=== PATIENT | female | born 1930 | race Caucasian/White ===

== ENCOUNTER 2017-10-29 12:14 | Emergency (ER) | payer MEDICARE, BC ==
[2017-10-29] MEDS ORDERED: RX INFO: IV CONTRAST WAS GIVEN 1 EACH MISC MISCELLANE PRN ×2 (12:19→13:30)
[2017-10-29] MEDS ORDERED: SODIUM CHLORIDE 0.9% 500 ML IV STA (12:19)
[2017-10-29 12:22] LABS: Glucose,Whole Blood 188 mg/dL (75-99)
--- NOTE | 2017-10-29 12:25 | ED ---
General Adult HPI <Serge Hussein - Last Filed: 10/29/17 14:23> - General Source: RN notes reviewed <Brant Obrien - Last Filed: 11/02/17 11:21> - General Stated complaint: Weakness Time Seen by Provider: 10/29/17 12:14 - History of Present Illness Initial comments: This is an 87 her old female who was found down on the ground by family patient was alert and oriented 4 and she did not want to come to the hospital but she was unable to write her own name so they decided to take her to the hospital. On scene patient was leaning to the left family stated that was not normal for her. In route to the hospital patient started have some facial droop on the left and weakness in the left arm. The weakness in the left arm seemed to resolve however the facial droop continued. Patient did not have any slurred speech or blurred vision. Patient denies any headache. Patient denies any chest pain difficulty breathing or shortness of breath per patient denied abdominal pain patient denies nausea vomiting diarrhea. Patient did complain of chronic back pain. Patient denies any recent fever chills. (Brant Obrien) - Related Data Home Medications Medication Instructions Recorded Confirmed ALPRAZolam [Xanax] 0.25 mg PO HS PRN 10/29/17 10/29/17 Losartan/Hydrochlorothiazide 1 tab PO DAILY 10/29/17 10/29/17 [Losartan-Hctz 100-25 mg Tab] Warfarin [Coumadin] 2.5 mg PO DIRECTED 10/29/17 10/29/17 metFORMIN HCL ER [Glucophage Xr] 500 mg PO BID 10/29/17 10/29/17 Allergies Allergy/AdvReac Type Severity Reaction Status Date / Time acetaminophen [From Tylenol] Allergy Unknown Verified 10/29/17 13:12 Review of Systems ROS Other: All systems not noted in ROS Statement are negative. <Serge Hussein - Last Filed: 10/29/17 14:23> ROS Other: All systems not noted in ROS Statement are negative. <Brant Obrien - Last Filed: 11/02/17 11:21> ROS Statement: Those systems with pertinent positive or pertinent negative responses have been documented in the HPI. General Exam <Serge Hussein - Last Filed: 10/29/17 14:23> <Brant Obrien - Last Filed: 11/02/17 11:21> - General Exam Comments Initial Comments: GENERAL: Patient is well-developed and well-nourished. Patient is nontoxic and well- hydrated and is in mild distress. ENT: Neck is soft and supple. No significant lymphadenopathy is noted. Oropharynx is clear. Moist mucous membranes. Neck has full range of motion without eliciting any pain. EYES: The sclera were anicteric and conjunctiva were pink and moist. Extraocular movements were intact and pupils were equal round and reactive to light. Eyelids were unremarkable. PULMONARY: Unlabored respirations. Good breath sounds bilaterally. No audible rales rhonchi or wheezing was noted. CARDIOVASCULAR: There is a regular rate and rhythm without any murmurs gallops or rubs. ABDOMEN: Soft and nontender with normal bowel sounds. No palpable organomegaly was noted. There is no palpable pulsatile mass. SKIN: Skin is clear with no lesions or rashes and otherwise unremarkable. NEUROLOGIC: Patient is alert and oriented x3. Patient is leaning to the left and has some facial drooping on the left as well. Patient has no slurred speech. Patient has normal metal coater strength and no drift. Patient has weakness on dorsiflexion of the left foot. MUSCULOSKELETAL: Normal extremities with adequate strength and full range of motion. No lower extremity swelling or edema. No calf tenderness. LYMPHATICS: No significant lymphadenopathy is noted PSYCHIATRIC: Normal psychiatric evaluation. (Brant Obrien) Course <KeenanSerge - Last Filed: 10/29/17 14:23> <Brant Obrien - Last Filed: 11/02/17 11:21> Vital Signs 10/29/17 10/29/17 10/29/17 12:18 12:38 12:47 Temperature 98.3 F Pulse Rate 65 64 68 Respiratory 18 16 16 Rate Blood Pressure 133/89 149/66 136/65 O2 Sat by Pulse 94 L 100 100 Oximetry 10/29/17 10/29/17 10/29/17 12:57 13:07 13:21 Temperature Pulse Rate 62 78 70 Respiratory 16 16 16 Rate Blood Pressure 125/59 147/66 140/65 O2 Sat by Pulse 100 100 100 Oximetry 10/29/17 10/29/17 10/29/17 13:27 13:37 13:47 Temperature Pulse Rate 68 68 80 Respiratory 16 16 16 Rate Blood Pressure 138/64 144/87 151/73 O2 Sat by Pulse 100 99 100 Oximetry 10/29/17 10/29/17 10/29/17 13:57 14:07 14:39 Temperature 97.5 F L Pulse Rate 69 72 77 Respiratory 16 16 16 Rate Blood Pressure 146/66 132/61 137/60 O2 Sat by Pulse 99 99 100 Oximetry - Reevaluation(s) Reevaluation #1: 10/29/17 14:23 The patient was to be transferred to [facility] in [place] I did discuss the case with Dr. Suarez who did call back after Dr. Obrien did depart. He has requested that Cardene be started for blood pressure control and also a CTA be done prior to the transfer. We ordered. (Serge Hussein) Medical Decision Making - Lab Data Result diagrams: 10/29/17 12:42 <Serge Hussein - Last Filed: 10/29/17 14:23> - Lab Data Result diagrams: 10/29/17 12:42 <Brant Obrien - Last Filed: 11/02/17 11:21> - Medical Decision Making I spoke with Dr. Suarez because of the intercranial hemorrhage he would make arrangements to have the patient transferred to the neuro ICU. Her patient blood pressure got up to 149 systolic psychiatric the patient 10 of hydralazine. Patient's EKG shows atrial fibrillation 70 bpm QRS is 66 QT interval 38 QTC is 419. EKG shows no ST segment elevation or depression or T-wave abnormalities noted. CT of the brain shows a basal ganglia/thalamus intercranial hemorrhage with a small amount of midline shift (Brant Obrien) - Lab Data Lab Results 10/29/17 10/29/17 Range/Units 12:20 12:42 WBC 13.8 H (3.8-10.6) k/uL RBC 4.61 (3.80-5.40) m/uL Hgb 13.7 (11.4-16.0) gm/dL Hct 40.8 (34.0-46.0) % MCV 88.4 (80.0-100.0) fL MCH 29.7 (25.0-35.0) pg MCHC 33.6 (31.0-37.0) g/dL RDW 12.7 (11.5-15.5) % Plt Count 263 (150-450) k/uL Neutrophils % 86 % Lymphocytes % 6 % Monocytes % 7 % Eosinophils % 0 % Basophils % 0 % Neutrophils # 11.9 H (1.3-7.7) k/uL Lymphocytes # 0.8 L (1.0-4.8) k/uL Monocytes # 0.9 (0-1.0) k/uL Eosinophils # 0.1 (0-0.7) k/uL Basophils # 0.0 (0-0.2) k/uL POC Glucose (mg/dL) 188 H (75-99) mg/dL POC Glu Video Production Intern ID Juliet Deleon Critical Care Time Critical Care Time: Yes Total Critical Care Time: 35 <Brant Obrien - Last Filed: 11/02/17 11:21> Disposition <Serge Hussein - Last Filed: 10/29/17 14:23> Time of Disposition: 12:43 - Out of Hospital Transfer - Req. Specs Out of Hospital Transfer - Requested Specifics: Neurological ICU ([facility]) <Brant Obrien - Last Filed: 11/02/17 11:21> Clinical Impression: Intraparenchymal hemorrhage of brain Disposition: OTHER INSTITUTION NOT DEFINED Referrals: None,Stated [Primary Care Provider] - 1-2 days
[2017-10-29] MEDS ORDERED: hydrALAZINE HCL 20 MG/ML 1 ML VIAL IVP STA (12:38)
[2017-10-29 12:47] VITALS: RESP 16
--- NOTE | 2017-10-29 12:48 | CT ---
EXAMINATION TYPE: CT brain wo con for TPA DATE OF EXAM: 10/29/2017 HISTORY: Neuro deficits. Left sided weakness and paresthesia. CT DLP: 1121 mGycm. Automated Exposure Control for Dose Reduction was Utilized. TECHNIQUE: CT scan of the head is performed without contrast. COMPARISON: None. FINDINGS: There is acute intraparenchymal hemorrhage measuring roughly 1.9 cm craniocaudal dimensio n sagittal image 20 x 2.0 cm AP diameter by 1.4 cm transversely axial image 23 in the right brain jessica tered medial basal ganglia and anterolateral thalamus. There is local mass effect with subtle midline shift 2 to 3 mm to the left at level of foramen of [place]. There is ventricular and sulcal prominence consistent with diffuse cerebral atrophy. There is low att enuation in the periventricular white matter. Hyperostosis frontalis is seen. Visualized paranasal si nuses are clear. The globes are intact bilaterally. There is calcified plaque supraclinoid segment of distal internal carotid arteries bilaterally. IMPRESSION: There is 2.0 cm acute intraparenchymal hemorrhage right medial basal ganglia also involvi ng anterolateral thalamus. Local mass effect and subtle midline shift is present. There is background [id number] diffuse cerebral atrophy and moderate to severe chronic small vessel ischemic [place] e noted. Case discussed with the ordering ER physician Dr. Obrien via telephone at time of dictation. A Document Only message has been documented for Josiah Parada MD in the [employer] Critical Re sult system on 10/29/2017 12:46 PM, Message ID [id number].
[2017-10-29 12:52] LABS: Basophils % (A) 0 %; CH 30.3; CHCM 34.4; Eosinophils # (A) 0.1 k/uL (0-0.7); Eosinophils % (A) 0 %; HCT 40.8 % (34.0-46.0); HDW 2.29; HGB 13.7 gm/dL (11.4-16.0); Luc % (Auto) 1; Lymphocytes # (A) 0.8 k/uL (1.0-4.8); Lymphocytes % (A) 6 %; MCH 29.7 pg (25.0-35.0); MCHC 33.6 g/dL (31.0-37.0); MCV 88.4 fL (80.0-100.0); Mean Platelet Volume 7.7; Monocytes # (A) 0.9 k/uL (0-1.0); Monocytes % (A) 7 %; Neutrophils # (A) 11.9 k/uL (1.3-7.7); Neutrophils % (A) 86 %; RBC 4.61 m/uL (3.80-5.40); RDW 12.7 % (11.5-15.5); WBC 13.8 k/uL (3.8-10.6); WBC (Perox) 13.54
--- NOTE | 2017-10-29 13:11 | XR ---
EXAMINATION TYPE: XR chest 1V portable DATE OF EXAM: 10/29/2017 COMPARISON: NONE HISTORY: Altered mental status and weakness. TECHNIQUE: Single AP portable frontal upright view of the chest is obtained. FINDINGS: There is chronic parenchymal changes without suspicious focal air space opacity, pleural e ffusion, or pneumothorax seen. . There is patchy left basilar linear atelectasis and/or scarring. The cardiac silhouette size is mildly enlarged with atherosclerotic and slightly ectatic aorta identifie d. The osseous structures are demineralized. IMPRESSION: Chronic parenchymal change and mild cardiomegaly without suspicious acute pulmonary proc ess.
--- NOTE | 2017-10-29 14:30 | CT ---
EXAMINATION TYPE: CT angio head neck DATE OF EXAM: 10/29/2017 HISTORY: Patient having neuro deficits. Left sided paresthesia. Code stroke. COMPARISON: CT brain from earlier today CT DLP: 495.00 mGycm. Automated Exposure Control for Dose Reduction was Utilized. TECHNIQUE: CTA scan of the neck is performed with IV Contrast, patient injected with 65 mL of Omnipa que 350, axial images are obtained, coronal and sagittal reformatted images are reviewed. Three-D rec onstructed images are created on an independent workstation and reviewed. FINDINGS: Carotid/Vascular Structures: The visualized portion of the aortic arch shows mild peripheral plaque. Arch origins are not included making evaluation slightly suboptimal. The right common carotid artery shows normal origin from the right brachiocephalic artery. There is no significant plaque or stenosis . There is mild eccentric calcified plaque at right carotid bulb anteriorly. There is patent external carotid artery without significant plaque or stenosis. There is a tortuous course to the right inter nal carotid artery without significant plaque or stenosis. There is moderate calcified plaque supracl inoid segment distal internal carotid artery without significant stenosis. There is tortuous course to left common carotid artery without significant plaque or stenosis. No sig nificant focal plaque is seen in the left carotid bulb. This patent external carotid artery without s ignificant plaque or stenosis. There is markedly tortuous course to left internal carotid artery. Mil d calcified plaque supraclinoid segment distal internal carotid arteries seen without significant anne-marie nosis. There is codominant vertebral basilar system. There is no significant plaque or stenosis. Posterior c irculation shows hypoplastic posterior communicating arteries bilaterally. No aneurysmal change or si gnificant stenosis is seen. Anterior circulation shows patent anterior communicating artery without s ignificant plaque or stenosis. Other: Area of acute intraparenchymal hemorrhage right basal ganglia and inferior anterolateral thala mus is redemonstrated with focal mass effect or midline shift. There is background diffuse cerebral a trophy and chronic small vessel ischemic change redemonstrated. There is cgra-co-phrlabex multilevel spurring and disc space narrowing with prominent C5-C6 and C6-C7 levels. Slight scoliotic curvature is seen. Mild emphysematous change visualized lung apices is felt present. Thyroid gland is heterogeneous with scattered subcentimeter hypodense nodules, underlying goiter is suspected. No suspicious enlargement is seen. IMPRESSION: 1. No significant focal stenosis in common or internal carotid arteries bilaterally. 2. No aneurysmal change at level [place].
[2017-10-29 14:40] VITALS: BP 137/60; PULSE 77; TEMP 97.5
== END 2017-10-29 14:40 | disposition other institution (70) ==
LOC: EC 12:14
DX: I61.8 Other nontraumatic intracerebral hemorrhage (principal); M54.9 Dorsalgia, unspecified; G89.29 Other chronic pain; Z79.01 Long term (current) use of anticoagulants; Z79.84 Long term (current) use of oral hypoglycemic drugs; Z79.899 Other long term (current) drug therapy; Z88.6 Allergy status to analgesic agent
CPT/HCPCS: 99291; 96365; 36415; 93005; 85025; 71010; 70496; 70450; 70498; Q9967